=== PATIENT | female | born 1935 | race Caucasian/White ===

== ENCOUNTER 2023-05-18 15:09 | Emergency (ER) | payer OTHER ==
[~2023-05-18] VITALS: Ht 154.9 cm; Wt 40.9 kg
[2023-05-18 15:18] VITALS: TEMP 97.8
[2023-05-18] MEDS ORDERED: APIX5TAB PO (15:18)
[2023-05-18] MEDS: MethylPREDNISolone SOD SUCC 125 MG/2 ML VIAL IVP ONE (15:36)
[2023-05-18 15:41] LABS: ABG BASE EXCESS -1.7 mmol/L (-2.0-3.0); ABG CARBOXYHEMOGLOBIN 0.6 % (0.0-1.5); ABG HCO3 25.7 mmol/L (22.0-26.0); ABG METHEMOGLOBIN 0.8 % (0.0-1.5); ABG OXYGEN CONTENT 19.4 mL/dL (15.0-23.0); ABG OXYGEN SATURATION 99.8 % (95.0-98.0); ABG OXYHEMOGLOBIN 98.4 % (94.0-100.0); ABG TOTAL HEMOGLOBIN 13.8 G/dL (12.0-18.0); PO2, ARTERIAL BG 155.5 mmHg (71.0-79.0); SOURCE, BLOOD GAS ARTERIAL; TEMPERATURE, FAHRENHEIT, BG 97.8 FAHREN (96.0-98.6)
[2023-05-18 15:42] LABS: ABG PCO2 15 mmHg (35-45); ABG PH 7.703 (7.35-7.450); ALLEN TEST, BLOOD GAS Positive; O2 DEVICE,BLOOD GAS CANNULA (ROOM AIR); SITE, BLOOD GAS LFT RADIAL
[2023-05-18 16:06] LABS: BASOPHILS % (AUTO) 0.3 % (0.0-2.0); EOSINOPHILS % (AUTO) 1.8 % (1.0-6.0); HEMATOCRIT 39.8 % (36-46); HEMOGLOBIN 13.4 g/dL (12.0-16.0); LYMPHOCYTES # (AUTO) 3.8 K/uL (1.0-4.8); LYMPHOCYTES % (AUTO) 39.3 % (22.0-44.0); MEAN CORPUSCULAR HEMOGLOBIN 29.3 pg (26.0-34.0); MEAN CORPUSCULAR HGB CONC 33.6 G/dL (31.0-37.0); MEAN CORPUSCULAR VOLUME 87 fL (80-100); MONOCYTES # (AUTO) 0.6 K/uL (0.1-1.0); MONOCYTES % (AUTO) 6.2 % (2.0-9.0); NEUTROPHILS # (AUTO) 5.1 K/uL (1.8-7.7); NEUTROPHILS % (AUTO) 52.4 % (40.0-70.0); PLATELET COUNT (AUTO) 265 K/uL (150-450); RED BLOOD CELL COUNT(AUTO) 4.55 MIL/uL (4.00-5.20); RED CELL DISTRIBUTION WIDTH 14.3 % (11.5-14.5); WHITE BLOOD COUNT (AUTO) 9.8 K/uL (4.5-11.0)
[2023-05-18] MEDS: LORazepam 2 MG/ML VIAL IVP ONE (16:07)
[2023-05-18 16:09] LABS: INR 1.1 (0.9-1.1); PROTHROMBIN TIME 11.3 SEC (9.4-11.6)
[2023-05-18 16:10] LABS: CALCIUM, TOTAL 10.1 mg/dL (8.8-10.5); CREATININE 1.87 mg/dL (0.60-1.30); POTASSIUM 3.9 mmol/L (3.5-5.1)
[2023-05-18 16:18] LABS: TROPONIN I-HIGH SENSITIVITY 20 ng/L (<51)
[2023-05-18 16:35] LABS: ALBUMIN 4.4 g/dL (3.4-5.0); BILIRUBIN,TOTAL 1.3 mg/dL (0.1-1.0); TOTAL PROTEIN, SERUM 7.6 g/dL (6.4-8.2)
[2023-05-18] MEDS ORDERED: LOSA-381 PO (16:42)
[2023-05-18] MEDS ORDERED: FURO20 PO (16:42)
[2023-05-18] MEDS ORDERED: FLUT1BLS18 IH (16:42)
[2023-05-18] MEDS ORDERED: PANT-31 PO (16:42)
[2023-05-18] MEDS ORDERED: ALBU18HF12 IH (16:42)
[2023-05-18] MEDS ORDERED: DILT-92 PO (16:42)
[2023-05-18 17:21] LABS: INFLUENZA A-RTPCR,COMBO NEGATIVE (NEGATIVE); INFLUENZA B-RTPCR,COMBO NEGATIVE (NEGATIVE); RESPIRATORY SYNCYTIAL VRS-PCR NEGATIVE (NEGATIVE); SARS COVID19 RTPCR, COMBO NEGATIVE (NEGATIVE)
[2023-05-18 18:28] VITALS: BP 110/79; PULSE 73; RESP 17
[2023-05-18] MEDS ORDERED: LORA-999 PO (18:46)
== END 2023-05-18 19:49 | disposition home or self-care (01) ==
LOC: EMS 15:13
DX: F41.9 Anxiety disorder, unspecified (principal); F45.8 Other somatoform disorders; Z98.890 Other specified postprocedural states; Z20.822 Contact with and (suspected) exposure to COVID-19
CPT/HCPCS: 99291; 96374; 0241U; 96375; 80053; 82550; 83880; 84484; 85025; 85610; 85730; 87040; 36415; 82805; 36600; 71045; 93005; J2060; J2930